=== PATIENT | female | born 1950 | race Caucasian/White ===

== ENCOUNTER 2021-10-26 13:34 | Inpatient (IN) ==
[2021-10-26] MEDS ORDERED: Ipratropium/Albuterol Neb 3 ML IH PRN (16:03)
[2021-10-26] MEDS ORDERED: Ondansetron 4 MG/2 ML VIAL IVP PRN (16:11)
[2021-10-26] MEDS ORDERED: Naloxone 0.4 MG/ML INJ IVP PRN (16:11)
[2021-10-26] MEDS ORDERED: D5% in Water 1,000 ML IVC PRN (16:12)
[2021-10-26] MEDS ORDERED: *HR* Dextrose 50 % in Water (Syg) 50 ML SYRINGE IVP PRN (16:12)
[2021-10-26] MEDS ORDERED: Dextrose Gel 15 GM/37.5 ML TUBE PO PRN ×2 (16:12)
[2021-10-26 16:26] LABS: ABG Base Excess -5 mEq/L (-2 to 3); ABG HCO3 26 mEq/L (21-27); ABG Oxygen Saturation 83 % (95-98); ABG PCO2 84 mmHg (35-45); ABG PO2 67 mmHg (85-104); ABG TCO2 29 mEq/L (20-26)
[2021-10-26] MEDS ORDERED: 0.9 % Sodium Chloride 250 ML IVC PRN (16:30)
[2021-10-26] MEDS ORDERED: 0.9 % Sodium Chloride 1,000 ML PRIME SCH (16:45)
[2021-10-26] MEDS ORDERED: Albumin 25% 25gram/100mL 25 GM/100 ML IV.SOLN IVPB PRN (16:45)
[2021-10-26] MEDS: Insulin LISPRO 300 UNITS/3 ML VIAL SUBQ SCH (17:30)
[2021-10-26 18:29] LABS: Basophils # 0.1 K/mcL (0.0-0.2); Basophils % 0.5 %; Eosinophils % 0.2 %; Hematocrit 29.7 % (35.3-44.9); Hemoglobin 8.7 g/dL (11.5-15.4); Immature Granulocytes % 2.9 % (0-4); Lymphocytes # 1.2 K/mcL (0.6-4.6); Lymphocytes % 6.9 %; Mean Corpuscular HGB Conc 29.3 g/dL (31.6-35.5); Mean Corpuscular Hemoglobin 32.2 pg (28.0-33.3); Mean Platelet Volume 10.3 fL (9.4-12.4); Monocytes # 0.8 K/mcL (0.0-1.3); Monocytes % 4.6 %; Neutrophils # 14.8 K/mcL (1.6-8.9); Nucleated Red Blood Cells 1.8 /100 WBC (0); Platelet Count 185 K/mcL (140-400); Red Cell Distribution Width 17.1 % (11.5-14.5); Segmented Neutrophils % 84.9 %; White Blood Count 17.5 K/mcL (4.3-11.1)
[2021-10-26 18:40] LABS: ABG Base Excess -4 mEq/L (-2 to 3); ABG HCO3 26 mEq/L (21-27); ABG Oxygen Saturation 98 % (95-98); ABG PCO2 81 mmHg (35-45); ABG PH 7.12 pH Units (7.32-7.45); ABG PO2 135 mmHg (85-104); ABG TCO2 29 mEq/L (20-26)
[2021-10-26 18:42] LABS: Activated Partial Thrombo Time 102.7 Seconds (26.0-36.0)
[2021-10-26 18:47] LABS: Magnesium 2.5 mg/dL (1.6-2.6); Phosphorous 7.7 mg/dL (2.7-4.5); Prothrombin Time 44.6 Seconds (9.4-12.1)
[2021-10-26 18:50] LABS: Albumin 3.4 g/dL (3.5-5.7); Albumin/Globulin Ratio 1.3 (1.1-2.2); Bilirubin,Total 0.7 mg/dL (0.3-1.0); Calcium 6.6 mg/dL (8.6-10.3); Globulin 2.7 g/dL (2.4-3.5); Potassium 5.6 mEq/L (3.5-5.1); Total Protein 6.1 g/dL (6.4-8.9)
[2021-10-26 19:13] LABS: Hepatitis B Surface Antibody 37.84 mIU/mL
[2021-10-26 19:24] LABS: Hepatitis B Surface Antigen Nonreactive (Nonreactive)
[2021-10-27] MEDS: Insulin LISPRO 300 UNITS/3 ML VIAL SUBQ SCH ×4 (00:27→17:57)
[2021-10-27 05:00] LABS: ABG Base Excess 1 mEq/L (-2 to 3); ABG HCO3 30 mEq/L (21-27); ABG Oxygen Saturation 97 % (95-98); ABG PCO2 74 mmHg (35-45); ABG PH 7.21 pH Units (7.32-7.45); ABG PO2 114 mmHg (85-104); ABG TCO2 32 mEq/L (20-26)
[2021-10-27 06:00] LABS: Basophils % 0.3 %; Eosinophils % 0.3 %; Hematocrit 28.2 % (35.3-44.9); Hemoglobin 8.6 g/dL (11.5-15.4); Lymphocytes # 0.9 K/mcL (0.6-4.6); Lymphocytes % 5.6 %; Mean Corpuscular HGB Conc 30.5 g/dL (31.6-35.5); Mean Corpuscular Hemoglobin 33.5 pg (28.0-33.3); Mean Corpuscular Volume 109.7 fL (83.0-100.0); Mean Platelet Volume 10.5 fL (9.4-12.4); Monocytes # 0.6 K/mcL (0.0-1.3); Monocytes % 3.7 %; Neutrophils # 13.4 K/mcL (1.6-8.9); Nucleated Red Blood Cells 1.6 /100 WBC (0); Platelet Count 152 K/mcL (140-400); Red Blood Count 2.57 M/mcL (3.82-4.97); Red Cell Distribution Width 17.1 % (11.5-14.5); Segmented Neutrophils % 88.1 %; White Blood Count 15.2 K/mcL (4.3-11.1)
[2021-10-27 06:10] LABS: Albumin 3.3 g/dL (3.5-5.7); Albumin/Globulin Ratio 1.3 (1.1-2.2); Bilirubin,Total 0.8 mg/dL (0.3-1.0); Calcium 7.2 mg/dL (8.6-10.3); Globulin 2.6 g/dL (2.4-3.5); Magnesium 2.2 mg/dL (1.6-2.6); Phosphorous 5.5 mg/dL (2.7-4.5); Potassium 4.4 mEq/L (3.5-5.1); Total Protein 5.9 g/dL (6.4-8.9); Troponin I 0.25 ng/mL (< 0.04)
[2021-10-27 06:13] LABS: INR 1.5; Prothrombin Time 16.7 Seconds (9.4-12.1)
[2021-10-27] MEDS ORDERED: levoFLOXacin 750 MG TABLET PO SCH (07:30)
[2021-10-27] MEDS ORDERED: levoFLOXacin 750 MG/150 ML 750 MG/150 ML BAG IVPB SCH (09:00)
[2021-10-27 10:43] LABS: ABG Base Excess 3 mEq/L (-2 to 3); ABG HCO3 31 mEq/L (21-27); ABG Oxygen Saturation 97 % (95-98); ABG PCO2 73 mmHg (35-45); ABG PH 7.24 pH Units (7.32-7.45); ABG PO2 112 mmHg (85-104); ABG TCO2 33 mEq/L (20-26); Blood Gas Modality AVAPS; Blood Gas VT 550 cc
[2021-10-27] MEDS ORDERED: Clotrimazole 1% CRM 15 GM TUBE TP PRN (12:57)
[2021-10-28] MEDS: Insulin LISPRO 300 UNITS/3 ML VIAL SUBQ SCH ×4 (00:53→18:21)
[2021-10-28] MEDS ORDERED: 0.9 % Sodium Chloride 250 ML IVC PRN (08:28)
[2021-10-28] MEDS: Fluticasone Propionate Nasal 50 MCG/SPRAY BOTTLE NS SCH (09:26)
[2021-10-28] MEDS: Metoprolol XL (24 HR) Succ 25 MG TAB.ER.24H PO SCH (09:26)
[2021-10-28 11:09] LABS: Platelet Count 108 K/mcL (140-400)
[2021-10-28 11:10] LABS: Hematocrit 29.5 % (35.3-44.9); Hemoglobin 8.7 g/dL (11.5-15.4); Mean Corpuscular HGB Conc 29.5 g/dL (31.6-35.5); Mean Corpuscular Hemoglobin 32.8 pg (28.0-33.3); Mean Corpuscular Volume 111.3 fL (83.0-100.0); Mean Platelet Volume 10.6 fL (9.4-12.4); Red Blood Count 2.65 M/mcL (3.82-4.97); Red Cell Distribution Width 17.2 % (11.5-14.5); White Blood Count 14.6 K/mcL (4.3-11.1)
[2021-10-28 11:28] LABS: Magnesium 2.4 mg/dL (1.6-2.6); Phosphorous 4.9 mg/dL (2.7-4.5); Potassium 4.7 mEq/L (3.5-5.1)
[2021-10-28 11:38] LABS: Thyroid Stimulating Hormone 0.368 mcIU/mL (0.340-5.600)
[2021-10-28 11:41] LABS: Triiodothyronine (T3) Free 2.35 pg/mL (2.50-3.90)
[2021-10-28] MEDS: *HR* Heparin 5,000 UNIT/ML VIAL SQ SCH (19:58)
[2021-10-29] MEDS: Insulin LISPRO 300 UNITS/3 ML VIAL SUBQ SCH ×4 (01:00→17:19)
[2021-10-29 01:56] LABS: Basophils % 0.5 %
[2021-10-29 01:57] LABS: Basophils # 0.1 K/mcL (0.0-0.2); Eosinophils % 0.3 %; Hemoglobin 7.8 g/dL (11.5-15.4); Lymphocytes # 1.1 K/mcL (0.6-4.6); Lymphocytes % 7.3 %; Mean Corpuscular Hemoglobin 33.3 pg (28.0-33.3); Mean Corpuscular Volume 111.1 fL (83.0-100.0); Mean Platelet Volume 10.5 fL (9.4-12.4); Monocytes # 0.7 K/mcL (0.0-1.3); Monocytes % 4.5 %; Nucleated Red Blood Cells 0.4 /100 WBC (0); Red Blood Count 2.34 M/mcL (3.82-4.97); Red Cell Distribution Width 17.2 % (11.5-14.5); Segmented Neutrophils % 81.4 %; White Blood Count 14.6 K/mcL (4.3-11.1)
[2021-10-29 02:04] LABS: Neutrophils # 11.9 K/mcL (1.6-8.9); Platelet Count 96 K/mcL (140-400)
[2021-10-29 02:21] LABS: Calcium 6.9 mg/dL (8.6-10.3); Magnesium 2.4 mg/dL (1.6-2.6); Phosphorous 5.2 mg/dL (2.7-4.5); Potassium 4.5 mEq/L (3.5-5.1)
[2021-10-29 02:28] LABS: Platelet Estimate Slight Decrease (Normal)
[2021-10-29] MEDS: *HR* Heparin 5,000 UNIT/ML VIAL SQ SCH ×2 (06:17→17:22)
[2021-10-29] MEDS: levoFLOXacin 500 MG/100 ML 500 MG/100 ML BAG IVPB SCH (08:35)
[2021-10-29] MEDS: Metoprolol XL (24 HR) Succ 25 MG TAB.ER.24H PO SCH (08:41)
[2021-10-29] MEDS: Fluticasone Propionate Nasal 50 MCG/SPRAY BOTTLE NS SCH (08:44)
[2021-10-29] MEDS: Acetaminophen 325 MG TABLET PO PRN (10:25)
[2021-10-30] MEDS: Insulin LISPRO 300 UNITS/3 ML VIAL SUBQ SCH ×4 (03:00→18:12)
[2021-10-30] MEDS: *HR* Heparin 5,000 UNIT/ML VIAL SQ SCH ×2 (06:12→18:50)
[2021-10-30] MEDS: Furosemide 40 MG TABLET PO SCH (08:51)
[2021-10-30] MEDS: Metoprolol XL (24 HR) Succ 25 MG TAB.ER.24H PO SCH (08:51)
[2021-10-30] MEDS: Fluticasone Propionate Nasal 50 MCG/SPRAY BOTTLE NS SCH (08:52)
[2021-10-30 09:22] LABS: Hematocrit 26.9 % (35.3-44.9); Mean Corpuscular HGB Conc 29.7 g/dL (31.6-35.5); Nucleated Red Blood Cells 0.4 /100 WBC (0); Red Cell Distribution Width 17.6 % (11.5-14.5)
[2021-10-30 09:24] LABS: Immature Platelets 4.5 % (1.1-6.1); Lymphocytes # 0.8 K/mcL (0.6-4.6); Mean Corpuscular Hemoglobin 32.9 pg (28.0-33.3); Mean Corpuscular Volume 110.7 fL (83.0-100.0); Mean Platelet Volume 10.6 fL (9.4-12.4); Red Blood Count 2.43 M/mcL (3.82-4.97); White Blood Count 13.9 K/mcL (4.3-11.1)
[2021-10-30 09:29] LABS: Platelet Count 98 K/mcL (140-400)
[2021-10-30 09:37] LABS: Albumin/Globulin Ratio 1.2 (1.1-2.2); Bilirubin,Direct 0.3 mg/dL (0.0-0.2); Bilirubin,Indirect 0.4 mg/dL (0.0-1.0); Bilirubin,Total 0.7 mg/dL (0.3-1.0); Globulin 2.6 g/dL (2.4-3.5); Magnesium 2.3 mg/dL (1.6-2.6); Phosphorous 5.7 mg/dL (2.7-4.5); Potassium 4.4 mEq/L (3.5-5.1); Total Protein 5.6 g/dL (6.4-8.9)
[2021-10-30 10:17] LABS: Eosinophils # 0.3 K/mcL (0.0-0.6); Monocytes # 0.3 K/mcL (0.0-1.3); Platelet Estimate Slight Decrease (Normal)
[2021-10-31] MEDS: Insulin LISPRO 300 UNITS/3 ML VIAL SUBQ SCH ×4 (00:01→17:05)
[2021-10-31 05:31] LABS: Nucleated Red Blood Cells 0.3 /100 WBC (0)
[2021-10-31 05:33] LABS: Basophils % 0.2 %; Eosinophils # 0.3 K/mcL (0.0-0.6); Hematocrit 26.3 % (35.3-44.9); Hemoglobin 7.8 g/dL (11.5-15.4); Immature Granulocytes % 4.9 % (0-4); Immature Platelets 5.8 % (1.1-6.1); Lymphocytes % 6.4 %; Mean Corpuscular HGB Conc 29.7 g/dL (31.6-35.5); Mean Corpuscular Hemoglobin 33.1 pg (28.0-33.3); Mean Corpuscular Volume 111.4 fL (83.0-100.0); Mean Platelet Volume 11.1 fL (9.4-12.4); Monocytes # 0.7 K/mcL (0.0-1.3); Neutrophils # 12.1 K/mcL (1.6-8.9); Platelet Count 102 K/mcL (140-400); Red Blood Count 2.36 M/mcL (3.82-4.97); Red Cell Distribution Width 17.9 % (11.5-14.5); Segmented Neutrophils % 81.5 %; White Blood Count 14.8 K/mcL (4.3-11.1)
[2021-10-31] MEDS: *HR* Heparin 5,000 UNIT/ML VIAL SQ SCH ×2 (05:47→17:04)
[2021-10-31 05:51] LABS: Magnesium 2.4 mg/dL (1.6-2.6); Phosphorous 5.9 mg/dL (2.7-4.5); Potassium 4.6 mEq/L (3.5-5.1)
[2021-10-31] MEDS ORDERED: 0.9 % Sodium Chloride 250 ML IVC PRN (07:28)
[2021-10-31] MEDS: Furosemide 40 MG TABLET PO SCH (08:45)
[2021-10-31] MEDS: Metoprolol XL (24 HR) Succ 25 MG TAB.ER.24H PO SCH (08:45)
[2021-10-31] MEDS: Fluticasone Propionate Nasal 50 MCG/SPRAY BOTTLE NS SCH (08:46)
[2021-10-31] MEDS: levoFLOXacin 500 MG/100 ML 500 MG/100 ML BAG IVPB SCH (08:46)
[2021-10-31] MEDS ORDERED: Isovue-370 500 ML BOTTLE IVP ONE (08:53)
[2021-10-31] MEDS ORDERED: Haloperidol Lactate 5 MG/ML VIAL IVP ONE (11:12)
[2021-10-31] MEDS: *HR* HYDROcodone/Acet 5/325 mg TABLET PO PRN (14:24)
[2021-10-31] MEDS: Acetaminophen 325 MG TABLET PO PRN (19:49)
[2021-11-01] MEDS: Insulin LISPRO 300 UNITS/3 ML VIAL SUBQ SCH ×4 (00:41→16:44)
[2021-11-01] MEDS: *HR* HYDROcodone/Acet 5/325 mg TABLET PO PRN ×3 (02:01→19:37)
[2021-11-01] MEDS: *HR* Heparin 5,000 UNIT/ML VIAL SQ SCH ×2 (04:25→17:57)
[2021-11-01 07:48] LABS: Basophils % 0.2 %; Calcium 7.3 mg/dL (8.6-10.3); Magnesium 2.1 mg/dL (1.6-2.6); Potassium 3.8 mEq/L (3.5-5.1)
[2021-11-01 07:51] LABS: Eosinophils # 0.2 K/mcL (0.0-0.6); Eosinophils % 1.3 %; Hematocrit 26.7 % (35.3-44.9); Hemoglobin 7.8 g/dL (11.5-15.4); Immature Granulocytes % 3.7 % (0-4); Immature Platelets 5.5 % (1.1-6.1); Lymphocytes # 0.7 K/mcL (0.6-4.6); Lymphocytes % 5.2 %; Mean Corpuscular HGB Conc 29.2 g/dL (31.6-35.5); Mean Corpuscular Volume 109.4 fL (83.0-100.0); Mean Platelet Volume 11.4 fL (9.4-12.4); Monocytes # 0.6 K/mcL (0.0-1.3); Monocytes % 4.3 %; Neutrophils # 12.1 K/mcL (1.6-8.9); Red Blood Count 2.44 M/mcL (3.82-4.97); Red Cell Distribution Width 17.7 % (11.5-14.5); Segmented Neutrophils % 85.3 %; White Blood Count 14.2 K/mcL (4.3-11.1)
[2021-11-01 08:15] LABS: Platelet Count 87 K/mcL (140-400)
[2021-11-01] MEDS: Metoprolol XL (24 HR) Succ 25 MG TAB.ER.24H PO SCH (09:50)
[2021-11-01] MEDS: Furosemide 40 MG TABLET PO SCH (09:50)
[2021-11-01] MEDS: Fluticasone Propionate Nasal 50 MCG/SPRAY BOTTLE NS SCH (09:51)
[2021-11-01] MEDS ORDERED: Haloperidol Lactate 5 MG/ML VIAL IVP ONE (10:39)
[2021-11-01] MEDS ORDERED: QUEtiapine Fumarate 25 MG TABLET PO ONE (13:45)
[2021-11-02] MEDS: Insulin LISPRO 300 UNITS/3 ML VIAL SUBQ SCH ×3 (00:15→11:56)
[2021-11-02] MEDS: *HR* HYDROcodone/Acet 5/325 mg TABLET PO PRN ×4 (01:37→20:18)
[2021-11-02] MEDS: *HR* Heparin 5,000 UNIT/ML VIAL SQ SCH ×2 (05:07→17:07)
[2021-11-02] MEDS ORDERED: 0.9 % Sodium Chloride 250 ML IVC PRN (07:19)
[2021-11-02] MEDS: Furosemide 40 MG TABLET PO SCH (08:04)
[2021-11-02] MEDS: Metoprolol XL (24 HR) Succ 25 MG TAB.ER.24H PO SCH (08:04)
[2021-11-02] MEDS: levoFLOXacin 500 MG/100 ML 500 MG/100 ML BAG IVPB SCH (08:04)
[2021-11-02] MEDS: Fluticasone Propionate Nasal 50 MCG/SPRAY BOTTLE NS SCH (08:04)
[2021-11-02 11:59] LABS: Basophils % 0.2 %; Eosinophils # 0.3 K/mcL (0.0-0.6); Eosinophils % 1.8 %; Hemoglobin 8.8 g/dL (11.5-15.4); Immature Granulocytes % 3.5 % (0-4); Lymphocytes # 0.7 K/mcL (0.6-4.6); Lymphocytes % 4.7 %; Mean Corpuscular HGB Conc 29.3 g/dL (31.6-35.5); Mean Corpuscular Hemoglobin 31.7 pg (28.0-33.3); Mean Corpuscular Volume 107.9 fL (83.0-100.0); Mean Platelet Volume 10.9 fL (9.4-12.4); Monocytes # 0.6 K/mcL (0.0-1.3); Monocytes % 4.2 %; Neutrophils # 11.8 K/mcL (1.6-8.9); Platelet Count 123 K/mcL (140-400); Red Blood Count 2.78 M/mcL (3.82-4.97); Red Cell Distribution Width 17.7 % (11.5-14.5); Segmented Neutrophils % 85.6 %; White Blood Count 13.8 K/mcL (4.3-11.1)
[2021-11-02 12:17] LABS: Calcium 7.5 mg/dL (8.6-10.3); Phosphorous 4.2 mg/dL (2.7-4.5); Potassium 3.9 mEq/L (3.5-5.1)
[2021-11-03] MEDS: *HR* HYDROcodone/Acet 5/325 mg TABLET PO PRN ×3 (03:20→15:35)
[2021-11-03] MEDS: *HR* Heparin 5,000 UNIT/ML VIAL SQ SCH ×2 (05:16→17:45)
[2021-11-03 08:07] LABS: Basophils % 0.1 %; Hematocrit 27.2 % (35.3-44.9); Mean Corpuscular Volume 106.7 fL (83.0-100.0); Red Blood Count 2.55 M/mcL (3.82-4.97)
[2021-11-03 08:09] LABS: Eosinophils # 0.3 K/mcL (0.0-0.6); Eosinophils % 1.9 %; Hemoglobin 8.2 g/dL (11.5-15.4); Immature Granulocytes % 1.6 % (0-4); Immature Platelets 5.4 % (1.1-6.1); Lymphocytes # 0.8 K/mcL (0.6-4.6); Mean Corpuscular HGB Conc 30.1 g/dL (31.6-35.5); Mean Corpuscular Hemoglobin 32.2 pg (28.0-33.3); Mean Platelet Volume 11.3 fL (9.4-12.4); Monocytes # 0.7 K/mcL (0.0-1.3); Monocytes % 4.9 %; Platelet Count 120 K/mcL (140-400); Red Cell Distribution Width 17.8 % (11.5-14.5); Segmented Neutrophils % 86.5 %
[2021-11-03 08:24] LABS: Calcium 7.6 mg/dL (8.6-10.3); Potassium 3.6 mEq/L (3.5-5.1)
[2021-11-03] MEDS: Metoprolol XL (24 HR) Succ 25 MG TAB.ER.24H PO SCH (09:07)
[2021-11-03] MEDS: Furosemide 40 MG TABLET PO SCH (09:07)
[2021-11-03] MEDS: Fluticasone Propionate Nasal 50 MCG/SPRAY BOTTLE NS SCH (09:08)
[2021-11-03] MEDS: Nystatin POWDER 30 GM BOTTLE TP SCH (19:50)
[2021-11-04] MEDS: *HR* HYDROcodone/Acet 5/325 mg TABLET PO PRN ×4 (00:20→21:17)
[2021-11-04] MEDS: *HR* Heparin 5,000 UNIT/ML VIAL SQ SCH ×2 (05:26→17:08)
[2021-11-04] MEDS ORDERED: 0.9 % Sodium Chloride 250 ML IVC PRN (07:05)
[2021-11-04 08:01] LABS: Basophils % 0.1 %; Eosinophils # 0.3 K/mcL (0.0-0.6); Eosinophils % 2.3 %; Hematocrit 27.4 % (35.3-44.9); Hemoglobin 8.2 g/dL (11.5-15.4); Immature Granulocytes % 1.2 % (0-4); Lymphocytes # 0.7 K/mcL (0.6-4.6); Lymphocytes % 5.2 %; Mean Corpuscular HGB Conc 29.9 g/dL (31.6-35.5); Mean Corpuscular Hemoglobin 31.7 pg (28.0-33.3); Mean Corpuscular Volume 105.8 fL (83.0-100.0); Mean Platelet Volume 11.2 fL (9.4-12.4); Monocytes # 0.8 K/mcL (0.0-1.3); Monocytes % 5.7 %; Neutrophils # 11.4 K/mcL (1.6-8.9); Platelet Count 139 K/mcL (140-400); Red Blood Count 2.59 M/mcL (3.82-4.97); Red Cell Distribution Width 17.8 % (11.5-14.5); Segmented Neutrophils % 85.5 %; White Blood Count 13.3 K/mcL (4.3-11.1)
[2021-11-04 08:02] LABS: Calcium 7.5 mg/dL (8.6-10.3); Potassium 3.9 mEq/L (3.5-5.1)
[2021-11-04] MEDS: Furosemide 40 MG TABLET PO SCH (08:35)
[2021-11-04] MEDS: Nystatin POWDER 30 GM BOTTLE TP SCH ×3 (08:37→21:18)
[2021-11-04] MEDS: Fluticasone Propionate Nasal 50 MCG/SPRAY BOTTLE NS SCH (12:21)
[2021-11-04] MEDS: Metoprolol XL (24 HR) Succ 25 MG TAB.ER.24H PO SCH (12:21)
[2021-11-05 02:17] LABS: Hematocrit 30.5 % (35.3-44.9); Hemoglobin 9.4 g/dL (11.5-15.4); Mean Corpuscular HGB Conc 30.8 g/dL (31.6-35.5); Mean Corpuscular Hemoglobin 32.2 pg (28.0-33.3); Mean Corpuscular Volume 104.5 fL (83.0-100.0); Mean Platelet Volume 10.7 fL (9.4-12.4); Platelet Count 179 K/mcL (140-400); Red Blood Count 2.92 M/mcL (3.82-4.97); Red Cell Distribution Width 18.3 % (11.5-14.5); White Blood Count 14.1 K/mcL (4.3-11.1)
[2021-11-05 02:41] LABS: Calcium 7.7 mg/dL (8.6-10.3); Potassium 3.9 mEq/L (3.5-5.1)
[2021-11-05] MEDS: *HR* HYDROcodone/Acet 5/325 mg TABLET PO PRN ×3 (03:44→21:53)
[2021-11-05] MEDS: *HR* Heparin 5,000 UNIT/ML VIAL SQ SCH ×2 (03:45→16:43)
[2021-11-05] MEDS: Fluticasone Propionate Nasal 50 MCG/SPRAY BOTTLE NS SCH (10:51)
[2021-11-05] MEDS: Metoprolol XL (24 HR) Succ 25 MG TAB.ER.24H PO SCH (10:51)
[2021-11-05] MEDS: Nystatin POWDER 30 GM BOTTLE TP SCH ×3 (10:52→21:54)
[2021-11-05] MEDS: Furosemide 40 MG TABLET PO SCH (10:56)
[2021-11-06] MEDS: Nicotine 14 MG PATCH.TD24 TD SCH (01:57)
[2021-11-06 02:24] LABS: Hematocrit 29.1 % (35.3-44.9); Hemoglobin 8.6 g/dL (11.5-15.4); Mean Corpuscular HGB Conc 29.6 g/dL (31.6-35.5); Mean Corpuscular Hemoglobin 31.3 pg (28.0-33.3); Mean Corpuscular Volume 105.8 fL (83.0-100.0); Mean Platelet Volume 10.8 fL (9.4-12.4); Platelet Count 179 K/mcL (140-400); Red Blood Count 2.75 M/mcL (3.82-4.97); Red Cell Distribution Width 18.4 % (11.5-14.5); White Blood Count 12.9 K/mcL (4.3-11.1)
[2021-11-06 02:47] LABS: Calcium 7.4 mg/dL (8.6-10.3); Potassium 4.2 mEq/L (3.5-5.1)
[2021-11-06] MEDS: *HR* Heparin 5,000 UNIT/ML VIAL SQ SCH ×2 (06:03→17:58)
[2021-11-06] MEDS: Fluticasone Propionate Nasal 50 MCG/SPRAY BOTTLE NS SCH (09:25)
[2021-11-06] MEDS: Nystatin POWDER 30 GM BOTTLE TP SCH ×3 (09:25→20:49)
[2021-11-06] MEDS: Metoprolol XL (24 HR) Succ 25 MG TAB.ER.24H PO SCH (09:25)
[2021-11-06] MEDS: Furosemide 40 MG TABLET PO SCH (09:25)
[2021-11-06] MEDS: *HR* HYDROcodone/Acet 5/325 mg TABLET PO PRN ×3 (09:29→21:52)
[2021-11-07] MEDS: Nicotine 14 MG PATCH.TD24 TD SCH ×2 (01:19→23:12)
[2021-11-07 01:39] LABS: Hemoglobin 8.7 g/dL (11.5-15.4); Mean Corpuscular Hemoglobin 31.5 pg (28.0-33.3); Mean Corpuscular Volume 105.1 fL (83.0-100.0); Mean Platelet Volume 10.6 fL (9.4-12.4); Platelet Count 198 K/mcL (140-400); Red Blood Count 2.76 M/mcL (3.82-4.97); Red Cell Distribution Width 18.5 % (11.5-14.5); White Blood Count 11.8 K/mcL (4.3-11.1)
[2021-11-07 02:42] LABS: Calcium 7.2 mg/dL (8.6-10.3); Potassium 4.8 mEq/L (3.5-5.1)
[2021-11-07] MEDS: *HR* HYDROcodone/Acet 5/325 mg TABLET PO PRN ×3 (04:45→23:11)
[2021-11-07] MEDS: *HR* Heparin 5,000 UNIT/ML VIAL SQ SCH ×2 (04:45→17:09)
[2021-11-07] MEDS ORDERED: 0.9 % Sodium Chloride 250 ML IVC PRN (07:37)
[2021-11-07] MEDS ORDERED: 0.9 % Sodium Chloride 1,000 ML PRIME SCH (07:45)
[2021-11-07] MEDS: Ketorolac 30 MG/ML VIAL IVP ONE ×2 (09:07→09:27)
[2021-11-07] MEDS: Furosemide 40 MG TABLET PO SCH (09:09)
[2021-11-07] MEDS: Nystatin POWDER 30 GM BOTTLE TP SCH ×3 (09:09→23:12)
[2021-11-07] MEDS: Fluticasone Propionate Nasal 50 MCG/SPRAY BOTTLE NS SCH (09:09)
[2021-11-07] MEDS ORDERED: Ketorolac 30 MG/ML VIAL IM STA (09:19)
[2021-11-07] MEDS: Metoprolol XL (24 HR) Succ 25 MG TAB.ER.24H PO SCH (13:15)
[2021-11-07] MEDS: Acetaminophen 325 MG TABLET PO PRN (19:40)
[2021-11-08] MEDS: *HR* Heparin 5,000 UNIT/ML VIAL SQ SCH ×2 (05:33→17:09)
[2021-11-08] MEDS: *HR* HYDROcodone/Acet 5/325 mg TABLET PO PRN ×3 (07:40→22:56)
[2021-11-08] MEDS: Furosemide 40 MG TABLET PO SCH (07:40)
[2021-11-08] MEDS: Metoprolol XL (24 HR) Succ 25 MG TAB.ER.24H PO SCH (07:40)
[2021-11-08] MEDS: Fluticasone Propionate Nasal 50 MCG/SPRAY BOTTLE NS SCH (07:41)
[2021-11-08] MEDS: Nystatin POWDER 30 GM BOTTLE TP SCH ×3 (07:41→20:11)
[2021-11-08 10:46] LABS: Hematocrit 28.3 % (35.3-44.9); Hemoglobin 8.6 g/dL (11.5-15.4); Mean Corpuscular HGB Conc 30.4 g/dL (31.6-35.5); Mean Corpuscular Hemoglobin 32.3 pg (28.0-33.3); Mean Corpuscular Volume 106.4 fL (83.0-100.0); Mean Platelet Volume 10.6 fL (9.4-12.4); Platelet Count 201 K/mcL (140-400); Red Blood Count 2.66 M/mcL (3.82-4.97); Red Cell Distribution Width 18.6 % (11.5-14.5); White Blood Count 8.2 K/mcL (4.3-11.1)
[2021-11-08 11:08] LABS: Calcium 7.4 mg/dL (8.6-10.3); Potassium 3.9 mEq/L (3.5-5.1)
[2021-11-08] MEDS: Acetaminophen 325 MG TABLET PO PRN (20:09)
[2021-11-09] MEDS: Nicotine 14 MG PATCH.TD24 TD SCH (01:19)
[2021-11-09 05:41] LABS: Hemoglobin 8.1 g/dL (11.5-15.4); Mean Corpuscular Hemoglobin 31.6 pg (28.0-33.3); Mean Corpuscular Volume 105.5 fL (83.0-100.0); Mean Platelet Volume 10.7 fL (9.4-12.4); Platelet Count 203 K/mcL (140-400); Red Blood Count 2.56 M/mcL (3.82-4.97); Red Cell Distribution Width 18.4 % (11.5-14.5)
[2021-11-09] MEDS: *HR* Heparin 5,000 UNIT/ML VIAL SQ SCH ×2 (05:49→17:01)
[2021-11-09 05:59] LABS: Calcium 7.2 mg/dL (8.6-10.3); Potassium 3.9 mEq/L (3.5-5.1)
[2021-11-09] MEDS: Furosemide 40 MG TABLET PO SCH (08:13)
[2021-11-09] MEDS: *HR* HYDROcodone/Acet 5/325 mg TABLET PO PRN ×3 (08:13→22:26)
[2021-11-09] MEDS: Fluticasone Propionate Nasal 50 MCG/SPRAY BOTTLE NS SCH (08:14)
[2021-11-09] MEDS: Metoprolol XL (24 HR) Succ 25 MG TAB.ER.24H PO SCH (08:14)
[2021-11-09] MEDS: Nystatin POWDER 30 GM BOTTLE TP SCH ×3 (08:14→19:49)
[2021-11-09] MEDS: Acetaminophen 325 MG TABLET PO PRN (19:48)
[2021-11-10] MEDS: Nicotine 14 MG PATCH.TD24 TD SCH ×2 (00:42→23:13)
[2021-11-10] MEDS: *HR* HYDROcodone/Acet 5/325 mg TABLET PO PRN ×3 (04:26→19:00)
[2021-11-10] MEDS: *HR* Heparin 5,000 UNIT/ML VIAL SQ SCH ×2 (05:47→17:48)
[2021-11-10 07:46] LABS: Hematocrit 27.3 % (35.3-44.9); Mean Corpuscular HGB Conc 29.3 g/dL (31.6-35.5); Mean Corpuscular Hemoglobin 31.6 pg (28.0-33.3); Mean Corpuscular Volume 107.9 fL (83.0-100.0); Mean Platelet Volume 10.5 fL (9.4-12.4); Platelet Count 200 K/mcL (140-400); Red Blood Count 2.53 M/mcL (3.82-4.97); Red Cell Distribution Width 18.6 % (11.5-14.5); White Blood Count 7.4 K/mcL (4.3-11.1)
[2021-11-10 08:05] LABS: Calcium 6.9 mg/dL (8.6-10.3)
[2021-11-10] MEDS: Metoprolol XL (24 HR) Succ 25 MG TAB.ER.24H PO SCH (08:39)
[2021-11-10] MEDS: Furosemide 40 MG TABLET PO SCH (08:40)
[2021-11-10] MEDS: Fluticasone Propionate Nasal 50 MCG/SPRAY BOTTLE NS SCH (08:40)
[2021-11-10] MEDS: Nystatin POWDER 30 GM BOTTLE TP SCH ×3 (08:40→19:55)
[2021-11-11] MEDS: *HR* HYDROcodone/Acet 5/325 mg TABLET PO PRN ×3 (01:09→19:32)
[2021-11-11] MEDS: *HR* Heparin 5,000 UNIT/ML VIAL SQ SCH ×2 (05:35→05:41)
[2021-11-11] MEDS ORDERED: 0.9 % Sodium Chloride 250 ML IVC PRN (07:49)
[2021-11-11] MEDS: Metoprolol XL (24 HR) Succ 25 MG TAB.ER.24H PO SCH (08:49)
[2021-11-11] MEDS: Fluticasone Propionate Nasal 50 MCG/SPRAY BOTTLE NS SCH (08:49)
[2021-11-11] MEDS: Nystatin POWDER 30 GM BOTTLE TP SCH ×3 (08:49→19:35)
[2021-11-11] MEDS: Furosemide 40 MG TABLET PO SCH (08:49)
[2021-11-11 10:07] LABS: Hematocrit 27.1 % (35.3-44.9); Hemoglobin 7.9 g/dL (11.5-15.4); Mean Corpuscular HGB Conc 29.2 g/dL (31.6-35.5); Mean Corpuscular Hemoglobin 31.2 pg (28.0-33.3); Mean Corpuscular Volume 107.1 fL (83.0-100.0); Mean Platelet Volume 10.7 fL (9.4-12.4); Platelet Count 197 K/mcL (140-400); Red Blood Count 2.53 M/mcL (3.82-4.97); Red Cell Distribution Width 18.4 % (11.5-14.5); White Blood Count 5.9 K/mcL (4.3-11.1)
[2021-11-11 10:27] LABS: Calcium 6.6 mg/dL (8.6-10.3); Potassium 4.2 mEq/L (3.5-5.1)
[2021-11-12] MEDS: Nicotine 14 MG PATCH.TD24 TD SCH (00:22)
[2021-11-12 02:48] LABS: Hematocrit 27.4 % (35.3-44.9); Hemoglobin 8.3 g/dL (11.5-15.4); Mean Corpuscular HGB Conc 30.3 g/dL (31.6-35.5); Mean Corpuscular Hemoglobin 32.4 pg (28.0-33.3); Mean Platelet Volume 10.2 fL (9.4-12.4); Platelet Count 213 K/mcL (140-400); Red Blood Count 2.56 M/mcL (3.82-4.97); Red Cell Distribution Width 18.5 % (11.5-14.5); White Blood Count 7.2 K/mcL (4.3-11.1)
[2021-11-12 03:08] LABS: Calcium 6.4 mg/dL (8.6-10.3); Potassium 4.3 mEq/L (3.5-5.1)
[2021-11-12] MEDS: *HR* HYDROcodone/Acet 5/325 mg TABLET PO PRN (04:18)
[2021-11-12] MEDS ORDERED: 0.9 % Sodium Chloride 250 ML IVC PRN (06:40)
[2021-11-12] MEDS: Nystatin POWDER 30 GM BOTTLE TP SCH ×2 (08:40→13:27)
[2021-11-12] MEDS: Fluticasone Propionate Nasal 50 MCG/SPRAY BOTTLE NS SCH (08:40)
[2021-11-12] MEDS: Furosemide 40 MG TABLET PO SCH (08:40)
[2021-11-12] MEDS: Metoprolol XL (24 HR) Succ 25 MG TAB.ER.24H PO SCH (08:40)
[2021-11-12 11:46] VITALS: BP 144/54; PULSE 88; TEMP 98.3; O2SAT 100
== END 2021-11-12 14:44 | DRG 640 ==
LOC: 2ANU → SUATTDRO 15:43 → 2NNU 18:27 → SUATTDRO 18:28 → 2ANU 10-30 21:38
PROVIDERS: ADMIT Internal Medicine; ATTEND Registered Nurse